=== PATIENT | female | born 1985 | race Caucasian/White ===

== ENCOUNTER 2021-03-30 06:31 | Day surgery (SDC) | payer OTHER ==
--- NOTE | 2021-03-26 11:34 | PCM.PREANE ---
Preanesthetic Assessment - Procedure Proposed Procedure: Laparoscopic assisted vaginal hysterectomy with bilateral salpingectomy. - Anesthesia/Transfusion/Family Hx Anesthesia History: Prior Anesthesia Without Reaction (some nausea with narcotics) Family History of Anesthesia Reaction: No Transfusion History: No Prior Transfusion(s) Intubation History: Unknown - Review of Systems General: No Symptoms Pulmonary: No Symptoms (ETOH: occasional beer) Cardiovascular: No Symptoms Gastrointestinal: No Symptoms (GERD) Neurological: No Symptoms (vertigo- ), Headache Other: Reports: Sinus Problem (allergic rhinitis), Anxiety - Physical Assessment NPO Status Date: 03/29/21 NPO Status Time: 20:00 Vital Signs: HR: Sat: Temp: B/P: Resp: Height: 1.73 m Weight: 86 kg ASA Class: 1 Mental Status: Alert & Oriented x3 Airway Class: Mallampati = 2 Dentition: Reports: Normal Dentition, Caries Thyro-Mental Finger Breadths: 3 Mouth Opening Finger Breadths: 3 ROM/Head Extension: Full Lungs: Clear to Auscultation, Normal Respiratory Effort Cardiovascular: Regular Rate, Regular Rhythm, No Murmurs - Allergies Allergies/Adverse Reactions: Allergies Allergy/AdvReac Type Severity Reaction Status Date / Time No Known Allergies Allergy Verified 03/29/21 10:56 - Anesthesia Plan Pre-Op Medication Ordered: None - Acknowledgements Anesthesia Type Planned: General Anesthesia Pt an Appropriate Candidate for the Planned Anesthesia: Yes Alternatives and Risks of Anesthesia Discussed w Pt/Guardian: Yes Pt/Guardian Understands and Agrees with Anesthesia Plan: Yes PreAnesthesia Questionnaire - HOME MEDS Home Medications: Home Meds . [No Known Home Meds] 03/29/21 [History] - CURRENT (IN HOUSE) MEDS Current Meds: Current Medications Lactated Ringer's (Ringers, Lactated) 1,000 mls @ 125 mls/hr IV ASDIRECTED DAVONTE Stop: 03/30/21 23:00 Lidocaine/Sodium Bicarbonate (Lidocaine 1%/Sod Bicarbonate In Ns 8.4% 1 Ml Syringe) 0.25 ml IDERM ONETIME PRN PRN Reason: Prior to IV Start Stop: 03/30/21 18:00 Sodium Chloride (Sodium Chloride 0.9% 10 Ml Syringe) 10 ml FLUSH ASDIRECTED PRN PRN Reason: Keep Vein Open Stop: 03/30/21 18:00
[~2021-03-30 06:31] MED LIST: Lactated Ringers 1,000 ML IV SCH; Lidocaine 1%/Sod Bicarbonate in NS 8.4% 1 ML Syringe IDERM PRN; Sodium Chloride 0.9% 10 ML Syringe FLUSH PRN
[2021-03-30] MEDS ORDERED: Lidocaine 1% with EPINEPHrine 1:100,000 10 ML MDV ONE (06:48)
[2021-03-30] MEDS ORDERED: Sodium Chloride 0.9% 50 ML SDV ONE (06:48)
[2021-03-30] MEDS ORDERED: Lidocaine 1% 4 ML ONE (06:49)
[2021-03-30] MEDS ORDERED: Ondansetron 4 MG/2 ML SDV ONE (06:49)
[2021-03-30] MEDS ORDERED: Bupivacaine 0.5% 30 ML SDV ONE (06:49)
[2021-03-30] MEDS ORDERED: Ketorolac 30 MG/ML SDV ONE (06:49)
[2021-03-30] MEDS ORDERED: Rocuronium 50 MG/5 ML Vial ONE (06:49)
[2021-03-30] MEDS ORDERED: Lactated Ringers 1,000 ML ONE ×2 (06:49→08:36)
[2021-03-30] MEDS ORDERED: Dexamethasone 4 MG/ML 5 ML MDV ONE (06:49)
[2021-03-30] MEDS ORDERED: fentaNYL 250 MCG/5 ML SDV ONE (06:50)
[2021-03-30] MEDS ORDERED: Midazolam 1 MG/ML 2 ML SDV ONE (06:50)
[2021-03-30] MEDS ORDERED: Propofol 200 MG/20 ML SDV ONE (06:50)
[2021-03-30] MEDS ORDERED: HYDROmorphone 0.5 MG/0.5 ML Syringe ONE ×2 (06:50→08:57)
[2021-03-30] MEDS ORDERED: ceFAZolin 1 GM Vial ONE (07:37)
[2021-03-30] MEDS ORDERED: Scopolamine 1.5 MG Transdermal Patch TRDERM ONE (08:00)
[2021-03-30] MEDS ORDERED: Albuterol 0.083% 2.5 MG/3 ML Neb Soln NEB PRN (08:12)
[2021-03-30] MEDS ORDERED: Ondansetron 4 MG/2 ML SDV IVPUSH PRN (08:12)
[2021-03-30] MEDS ORDERED: HYDROmorphone 0.5 MG/0.5 ML Syringe IVPUSH PRN (08:12)
[2021-03-30] MEDS ORDERED: ePHEDrine 50 MG/ML SDV IVPUSH PRN (08:12)
[2021-03-30] MEDS ORDERED: diphenhydrAMINE 50 MG/ML SDV IVPUSH PRN (08:12)
[2021-03-30] MEDS ORDERED: fentaNYL 100 MCG/2 ML SDV IVPUSH PRN (08:12)
[2021-03-30] MEDS ORDERED: Glycopyrrolate 0.2 MG/ML SDV ONE ×2 (08:50)
--- NOTE | 2021-03-30 09:25 | PCM.OPNOTE ---
- General Post-Op/Procedure Note Date of Surgery/Procedure: 03/30/21 Operative Procedure(s): Laparoscopic-assisted vaginal hysterectomy with bilateral salpingectomy Findings: Patient had moderate scarring in the anterior cul-de-sac secondary to her previous 2 C-sections. Uterus tubes ovaries otherwise looked essentially normal and functional. Appendix is surgically absent. Liver edge unremarkable. Posterior cul-de-sac unremarkable. Pre Op Diagnosis: 1. Menorrhagia. 2. Dysmenorrhea. 3. Irregular menses Post-Op Diagnosis: Same Anesthesia Technique: General ET Tube Other Anesthesia Type: Marcaine 0.5%localtotal 10 mL, lidocaine 1/4% with [id number] ml Primary Surgeon: Jax Oro Secondary Surgeon: Jc Ford Anesthesia Provider: Maura Qiu Reason Dialysis Registered Nurse Was Necessary: Retraction, assistance, patient safety, quality of care Pathology: Uterus with fallopian tubes bilaterally attached Fluid Replacement, Intraop: 1,200 Output, Urine Amount: 200 EBL in mLs: 100 Drain/Tube Comments:: Indwelling bladder catheter during surgery only. Complications: None Condition: Good Free Text/Narrative:: Surgery duration: 62 minutes The patient was taken to the operating room placed in supine position on the operating table. She received 2 g of Ancef preoperatively for infection prophylaxis. She had signed consent previously. After adequate anesthesia patient was placed in a dorsal lithotomy position. It should be noted she had sequential compression stockings in place for DVT prophylaxis. The patient was adequately prepped and draped the patient was placed in supine position and 3 laparoscopic port sites were developed. Marcaine 0.5% approximately 3-5 mL was injected at each site. Verres needle was placed and pneumoperitoneum was achieved with 3 L of CO2. Infraumbilical and 2 lateral port sites were developed. Under laparoscopic guidance the upper portion of the hysterectomy was performed. The right fallopian tube was elevated and mesosalpinx was crossclamped using the Fwd: Powereal computerized cautery device. The round ligament was taken down to the broad ligament. At this time attention was turned to the left side and the left infundibulopelvic ligament and the triple ligament were then taken down in a similar fashion. Broad ligament was taken down to the area of the uterine vasculature. Uterine vasculature was developed in the usual fashion using the cautery system. Both uterine arteries were identified and developed. Vaginal approach was then undertaken. The patient was placed in the dorsal lithotomy position and a weighted speculum was placed in the vagina. The cervix was injected with lidocaine quarter percent with epinephrine 20 mL total. A full circumference incision was made through the epithelium around the cervix. Posterior cul-de-sac was entered without problems. The left uterosacral ligament and then the right uterosacral were taken down using the Enseal vessel closure system. The cardinal ligament and what remained of the uterine vascular vessels and cervical branches of the vessels were managed with the Enseal vessel closure system on each side. Anterior cul-de-sac was then entered and the remaining portion of broad ligament on the right side and a small portion of broad ligament remaining on the left side were then developed in the usual fashion. Uterus was then removed. At this point the uterus was completely removed and sent as specimen. The vaginal cuff was then run with a locked running suture of 0 Monocryl from the 2 o'clock position to the 10 o'clock position. The vagina was closed with a running locked suture of 0 Monocryl. Hemostasis was confirmed this time and no bleeding was noted. Laparoscopy was then performed to ensure hemostasis. Pneumoperitoneum was reestablished and the laparoscope was placed. The pelvis was found to be hemostatically intact. The sleeves were removed and the upper sleeve was removed after reversal of the pneumoperitoneum. Each of these sites were closed with a single interrupted suture of 3-0 Monocryl. They were further approximated with Dermabond skin glue. At this point the patient was awakened from general endotracheal anesthesia. The Donnelly catheter had been removed by this time. She is discharged from the operating room in good condition.
--- NOTE | 2021-03-30 09:29 | PCM.POSTAN ---
POST ANESTHESIA ASSESSMENT - MENTAL STATUS Mental Status: Alert - VITAL SIGNS Vital Signs: Last Vital Signs Temp 97 03/30/21923 Pulse 67 03/30/21923 Resp 15 03/30/21923 BP 125/75 03/30/21923 Pulse Ox 96% 03/30/21923 - RESPIRATORY Respiratory Status: Respiratory Rate WNL, Airway Patent, O2 Saturation Stable, Supplemental Oxygen - CARDIOVASCULAR CV Status: Pulse Rate WNL, Blood Pressure Stable - GASTROINTESTINAL GI Status: No Symptoms - POST OP HYDRATION Hydration Status: Adequate & Stable
[2021-03-30] MEDS ORDERED: Haloperidol Lactate 5 MG/ML SDV IVPUSH ONE (09:45)
[2021-03-30] MEDS ORDERED: Midazolam 1 MG/ML 2 ML SDV IVPUSH PRN (09:45)
--- NOTE | 2021-03-30 10:36 | PCM48HPAN ---
Post Anesthesia Note - EVALUATION WITHIN 48HRS OF ANESTHETIC Vital Signs in Normal Range: Yes Patient Participated in Evaluation: Yes Respiratory Function Stable: Yes Airway Patent: Yes Cardiovascular Function Stable: Yes Hydration Status Stable: Yes Pain Control Satisfactory: Yes Nausea and Vomiting Control Satisfactory: Yes Mental Status Recovered: Yes Vital Signs: Last Vital Signs Temp 36.7 C 03/30/21 10:10 Pulse 83 03/30/21 10:10 Resp 12 03/30/21 10:10 BP 121/68 03/30/21 10:10 Pulse Ox 100 03/30/21 10:10
== END 2021-03-30 12:40 | disposition home or self-care (01) ==
LOC: JD.SDS 06:31
PROVIDERS: ATTEND Obstetrics & Gynecology
DX: N72 Inflammatory disease of cervix uteri (principal); N80.0 Endometriosis of uterus; N83.8 Other noninflammatory disorders of ovary, fallopian tube and broad ligament
CPT/HCPCS: 00944; 36415; 80053; 81003; 81025; 85025; 86850; 86900; 86901; A9270-GY; J0690; J1100; J1170; J1200; J1885; J2250; J2370; J2405; J2704; J2710; J3010; J3490; J7120